=== PATIENT | male | born 1990 | race Caucasian/White ===

== ENCOUNTER 2016-12-16 22:22 | Emergency (ER) | payer OTHER, MEDICAID ==
[~2016-12-16] VITALS: Ht 182.9 cm; Wt 134.9 kg
[~2016-12-16 22:22] MED LIST: /PANT40TA OR; METO10TA2 OR; PRILOSEC PO; TUMS500C OR
[2016-12-16 22:23] VITALS: BP 156/75
--- NOTE | 2016-12-17 08:18 | REP ---
RIGHT WRIST, FOUR VIEWS: HISTORY: Pain. A small ossified density is present along the base of the 5th metacarpal. This most likely represents ligamentous or tendon calcification and less likely an avulsion fracture fragment. There is no definite fracture or dislocation. The joint spaces are normal in appearance. IMPRESSION: There is no acute fracture or dislocation. Signed by Otoniel Cárdenas MD 12/17/2016 08:19 A
== END 2016-12-16 23:00 | disposition home or self-care (01) ==
LOC: M ED 22:22
DX: S63.501A Unspecified sprain of right wrist, initial encounter (principal); W19.XXXA Unspecified fall, initial encounter; Y92.9 Unspecified place or not applicable; Y93.9 Activity, unspecified; Y99.0 Civilian activity done for income or pay; Z88.0 Allergy status to penicillin; Z91.010 Allergy to peanuts

== ENCOUNTER 2017-01-27 16:02 | Emergency (ER) | payer MEDICAID, OTHER ==
[~2017-01-27] VITALS: Ht 180.3 cm; Wt 118.2 kg
[2017-01-27 16:02] VITALS: BP 136/71
[2017-01-27] MEDS ORDERED: IBUPROFEN 800 MG TAB PO ONE (17:00)
[2017-01-27] MEDS ORDERED: IBUP80TA PO (17:06)
[2017-01-30] MEDS ORDERED: APAP500T10 PO (19:29)
[2017-01-30] MEDS ORDERED: VENTAER IN (19:31)
== END 2017-01-27 17:14 | disposition home or self-care (01) ==
LOC: M ED 16:02
DX: M76.62 Achilles tendinitis, left leg (principal)

== ENCOUNTER 2017-01-30 19:12 | Emergency (ER) | payer OTHER, MEDICAID | END 2017-01-30 22:32 | disposition home or self-care (01) | LOC: M ED 19:12 | DX: M76.62 Achilles tendinitis, left leg (principal); S86.812A Strain of other muscle(s) and tendon(s) at lower leg level, left leg, initial encounter; X58.XXXA Exposure to other specified factors, initial encounter; Y92.9 Unspecified place or not applicable; Y93.9 Activity, unspecified; Y99.0 Civilian activity done for income or pay; J45.909 Unspecified asthma, uncomplicated; Z91.010 Allergy to peanuts; Z88.8 Allergy status to other drugs, medicaments and biological substances | CPT/HCPCS: 99283 ==

== ENCOUNTER → 2017-06-26 | Outpatient (CLI) | payer OTHER | LOC: M RAD 12:37 | DX: M54.42 Lumbago with sciatica, left side (principal) | CPT/HCPCS: 72082 ==

== ENCOUNTER 2017-07-23 23:09 | Emergency (ER) | payer OTHER ==
[2017-07-23] MEDS: NS 1,000 ML IV (23:44)
[2017-07-23] MEDS: PANTOPRAZOLE 40MG INJ (PROTONIX) (C9113) IV (23:44)
[2017-07-23] MEDS: KETOROLAC 30 MG/ML VIAL (J1885) IV (23:46)
[2017-07-24 00:05] LABS: PARTIAL THROMBOPLASTIN TIME 28.4 SECONDS (26.8-37.9)
[2017-07-24 00:10] LABS: BASO # 0.1 10^3/uL (0.0-0.2); EOS # 0.3 10^3/uL (0.0-0.50); EOS % 2.4 % (0.0-3.0); HEMATOCRIT 42.4 % (42.0-52.0); HEMOGLOBIN 15.2 g/dl (13.5-17.5); IMMATURE GRANULOCYTE % 1.1 % (0-3.0); LYMPH # 2.2 10^3/uL (1.5-6.5); LYMPH % 19.4 % (24.0-44.0); MEAN CORPUSCULAR HEMOGLOBIN 30.3 pg (27.0-33.0); MEAN CORPUSCULAR HGB CONC 35.8 g/dl (32.0-36.5); MEAN CORPUSCULAR VOLUME 84.6 fl (80.0-96.0); MONO # 0.9 10^3/uL (0.0-0.8); MONO % 7.5 % (0.0-5.0); NEUTROPHILS # 7.8 10^3/uL (1.8-7.7); NEUTROPHILS % 68.6 % (36.0-66.0); PLATELET COUNT, AUTOMATED 305 10^3/uL (150-450); RED BLOOD COUNT 5.01 10^6/uL (4.30-6.10); RED CELL DISTRIBUTION WIDTH 12.6 % (11.5-14.5); WHITE BLOOD COUNT 11.4 10^3/uL (4.0-10.0)
[2017-07-24 00:19] LABS: INR 1.07; PROTHROMBIN TIME 14.1 SECONDS (12.4-14.5)
[2017-07-24 00:54] LABS: ANION GAP 9 MEQ/L (8-16); BLOOD UREA NITROGEN 12 MG/DL (7-18); CALCIUM LEVEL 8.9 MG/DL (8.5-10.1); CARBON DIOXIDE LEVEL 26 MEQ/L (21-32); CHLORIDE LEVEL 105 MEQ/L (98-107); CK-MB VALUE MASS < 1.0 NG/ML (<3.6); CPK CREATINE PHOSPHOKINASE 154 U/L (39-308); CREATININE FOR GFR 1.21 MG/DL (0.70-1.30); ETHYL ALCOHOL (ETHANOL) 0.003 % (0.000-0.010); GLOMERULAR FILTRATION RATE > 60.0 (>60); GLUCOSE, FASTING 95 MG/DL (70-100); MB/CK RELATIVE INDEX 0.64 (< OR =4); POTASSIUM SERUM 3.3 MEQ/L (3.5-5.1); SODIUM LEVEL 140 MEQ/L (136-145); TROPONIN I < 0.02 NG/ML (< 0.10)
[2017-07-24 01:09] LABS: ABG BASE EXCESS -1.6 (-2.0-2.0); ABG HCO3 22.4 MEQ/L (22.0-26.0); ABG O2 SATURATION 94.7 % (95.0-99.0); ABG PARTIAL PRESSURE CO2 36.1 mmHg (35.0-45.0); ABG PARTIAL PRESSURE O2 70.4 mmHg (75.0-100.0); ABG STANDARD HCO3 23.1 MEQ/L (22.0-26.0); ABG TOTAL CO2 23.5 MEQ/L (22.0-29.0); ABG pH (ARTERIAL) 7.411 UNITS (7.350-7.450)
[2017-07-24] MEDS ORDERED: ISOVUE-370 76% 100ML VIAL (Q9967) As Ordered (02:19)
== END 2017-07-24 04:23 | disposition home or self-care (01) ==
LOC: M ED 23:09
DX: R07.89 Other chest pain (principal); R06.02 Shortness of breath; R11.0 Nausea; R00.2 Palpitations; K21.9 Gastro-esophageal reflux disease without esophagitis; J45.909 Unspecified asthma, uncomplicated; Z91.010 Allergy to peanuts; Z88.8 Allergy status to other drugs, medicaments and biological substances
CPT/HCPCS: C9113

== ENCOUNTER 2017-12-12 10:41 | Emergency (ER) | payer SELFPAY, OTHER | END 2017-12-12 12:56 | disposition home or self-care (01) | LOC: M ED 10:41 | DX: M10.9 Gout, unspecified (principal); Z88.1 Allergy status to other antibiotic agents; Z91.010 Allergy to peanuts | CPT/HCPCS: 99283 ==

== ENCOUNTER 2017-12-27 02:38 | Emergency (ER) | payer SELFPAY, OTHER ==
[2017-12-27] MEDS: KETOROLAC 60 MG/2 ML VIAL (J1885) IM (07:13)
[2017-12-27] MEDS: COLCHICINE 0.6 MG TAB PO ×2 (07:13)
== END 2017-12-27 07:47 | disposition home or self-care (01) ==
LOC: M ED 02:38
DX: M10.071 Idiopathic gout, right ankle and foot (principal); S93.524A Sprain of metatarsophalangeal joint of right lesser toe(s), initial encounter; W22.8XXA Striking against or struck by other objects, initial encounter; Y92.012 Bathroom of single-family (private) house as the place of occurrence of the external cause; J45.909 Unspecified asthma, uncomplicated; Z88.8 Allergy status to other drugs, medicaments and biological substances; Z91.010 Allergy to peanuts
CPT/HCPCS: J1885

== ENCOUNTER 2018-02-12 06:49 | Emergency (ER) | payer SELFPAY ==
[~2018-02-12] VITALS: Ht 182.9 cm; Wt 140.9 kg
[~2018-02-12 06:49] MED LIST changes: +APAP500T10 PO; +IBUP80TA PO; +INDO50CA PO; +INDO75CA PO; +NORCOTAB PO; +VENTAER IN
[2018-02-12] MEDS ORDERED: KETOROLAC 60 MG/2 ML VIAL (J1885) IM ONE (07:15)
--- NOTE | 2018-02-12 08:06 | REP ---
Chest x-ray: Two views. History: Trauma, left lower rib pain . Comparison study: Comparison radiographs October 23, 2013 . Findings: The lungs are well inflated and free of infiltrate. The pleural angles are sharp. The heart size is normal. Pulmonary vasculature is not increased. No significant bony abnormality is seen. Impression: Negative chest x-ray. Electronically Signed by Benigno Wynne MD 02/12/2018 07:58 A
[2018-02-12] MEDS ORDERED: PERC5TAB12 PO ×2 (08:14→08:19)
[2018-02-12 09:11] VITALS: BP 126/80
== END 2018-02-12 09:13 | disposition home or self-care (01) ==
LOC: M ED 06:49
DX: S29.9XXA Unspecified injury of thorax, initial encounter (principal); W10.8XXA Fall (on) (from) other stairs and steps, initial encounter; Y92.89 Other specified places as the place of occurrence of the external cause; J45.909 Unspecified asthma, uncomplicated; Z88.8 Allergy status to other drugs, medicaments and biological substances; Z91.010 Allergy to peanuts
CPT/HCPCS: 71046; 96372; 99283; J1885

== ENCOUNTER 2018-03-30 16:41 | Emergency (ER) | payer SELFPAY ==
[~2018-03-30] VITALS: Ht 180.3 cm; Wt 127.3 kg
[~2018-03-30 16:41] MED LIST changes: +PERC5TAB12 PO
[2018-03-30] MEDS ORDERED: IBUP-1114 PO (16:45)
[2018-03-30 17:18] VITALS: BP 145/69
[2018-03-30] MEDS ORDERED: BACT800T5 PO (17:18)
[2018-03-31] MEDS ORDERED: NORCOTAB PO (22:30)
[2018-03-31] MEDS ORDERED: FLAG500T PO (22:30)
[2018-04-08] MEDS ORDERED: CLIN150C14 PO (01:12)
== END 2018-03-30 17:31 | disposition home or self-care (01) ==
LOC: M ED 16:41
DX: L05.01 Pilonidal cyst with abscess (principal); J45.909 Unspecified asthma, uncomplicated; Z79.899 Other long term (current) drug therapy; Z88.1 Allergy status to other antibiotic agents; Z91.010 Allergy to peanuts

== ENCOUNTER 2018-03-31 18:53 | Emergency (ER) | payer SELFPAY ==
[~2018-03-31] VITALS: Ht 180.3 cm; Wt 127.3 kg
[~2018-03-31 18:53] MED LIST changes: +BACT800T5 PO; +IBUP-1114 PO
[2018-03-31] MEDS ORDERED: KETOROLAC 30 MG/ML VIAL (J1885) IV ONE (19:30)
[2018-03-31] MEDS ORDERED: cefTRIAXone SOD 1 GM in D5W MINI-BAG PLUS 50 ML IV ONE (19:30)
[2018-03-31 20:10] LABS: BASO # 0.1 10^3/uL (0.0-0.2); BASO % 0.6 % (0.0-1.0); EOS # 0.2 10^3/uL (0.0-0.50); EOS % 2.1 % (0.0-3.0); HEMATOCRIT 41.7 % (42.0-52.0); HEMOGLOBIN 14.5 g/dl (13.5-17.5); LYMPH # 1.7 10^3/uL (1.5-6.5); LYMPH % 15.7 % (24.0-44.0); MEAN CORPUSCULAR HEMOGLOBIN 29.7 pg (27.0-33.0); MEAN CORPUSCULAR HGB CONC 34.8 g/dl (32.0-36.5); MEAN CORPUSCULAR VOLUME 85.5 fl (80.0-96.0); MONO # 0.9 10^3/uL (0.0-0.8); MONO % 8.2 % (0.0-5.0); NEUTROPHILS # 7.8 10^3/uL (1.8-7.7); NEUTROPHILS % 72.9 % (36.0-66.0); PLATELET COUNT, AUTOMATED 289 10^3/uL (150-450); RED BLOOD COUNT 4.88 10^6/uL (4.30-6.10); WHITE BLOOD COUNT 10.7 10^3/uL (4.0-10.0)
[2018-03-31 20:32] LABS: C REACTIVE PROTEIN QUANTITATIV 5.21 MG/DL (0.00-0.30)
[2018-03-31 20:47] LABS: ERYTHROCYTE SEDIMENTATION RATE 15 mm/hr (0-15)
[2018-03-31 21:03] LABS: BLOOD UREA NITROGEN 6 MG/DL (7-18); CALCIUM LEVEL 8.4 MG/DL (8.5-10.1); CARBON DIOXIDE LEVEL 24 MEQ/L (21-32); CHLORIDE LEVEL 106 MEQ/L (98-107); CREATININE FOR GFR 1.12 MG/DL (0.70-1.30); GLOMERULAR FILTRATION RATE > 60.0 (>60); GLUCOSE, FASTING 89 MG/DL (70-100); SODIUM LEVEL 138 MEQ/L (136-145)
[2018-03-31] MEDS ORDERED: ISOVUE-370 76% 100ML VIAL (Q9967) As Ordered ONE (21:14)
--- NOTE | 2018-03-31 22:05 | REPVR ---
EXAM: CT Pelvis With Contrast EXAM DATE/TIME: 03/31/2018 9:09 PM CLINICAL HISTORY: 27 years old, male; Pain; Other: Pilonidal; Additional info: Pilonidal abscess, tract? TECHNIQUE: Axial computed tomography images of the pelvis with intravenous contrast. All CT scans at this facility use at least one of these dose optimization techniques: automated exposure control; mA and/or kV adjustment per patient size (includes targeted exams where dose is matched to clinical indication); or iterative reconstruction. Coronal and sagittal reformatted images were created and reviewed. CONTRAST: Contrast Material: 100 ml of ISOVUE 370; Contrast Route: IV COMPARISON: CT ABD PELVIS WITH CONTRAST 03/03/2013 7:56 AM FINDINGS: Stomach and bowel: Visualized small bowel and colon are unremarkable. Appendix: A normal appendix is seen. Bladder: Normal. No mass. Reproductive: Resolution of left hydrocele since the prior study. Intraperitoneal space: Unremarkable. No free air. No significant fluid collection. Lymph nodes: Unremarkable. No enlarged lymph nodes. Bones/joints: Unremarkable. No acute fracture. No dislocation. Soft tissues: Subcutaneous induration posterior to the sacrum at about the cephalad aspect of the buttocks crease. At the deep aspect of the crease superiorly, there is a small rounded confluence measuring approximately 1.5 x 1.6 x 1.4 cm and may reflect a small pilonidal cyst. There is skin thickening of the crease and adjacent medial buttocks. No soft tissue gas is noted. IMPRESSION: 1. New subcutaneous induration and skin thickening dorsal to the sacrum involving the cephalad aspect of the interbuttocks crease since 03/03/2013. Just below the level of the sciatic notches, there is a rounded focal confluence at the deep aspect of the crease measuring approximately 14 x 15 x 16 mm and may reflect focal phlegmon, early abscess or possible pilonidal cyst. No soft tissue gas is noted. 2. Otherwise negative CT pelvis. There is resolution of left hydrocele since the prior study. Electronically signed by: Kamar Bañuelos On 03/31/2018 22:05:15 PM
[2018-03-31] MEDS ORDERED: NORCOTAB PO (22:30)
[2018-03-31] MEDS ORDERED: FLAG500T PO (22:30)
[2018-03-31 22:38] VITALS: BP 129/78
--- NOTE | 2018-04-02 13:06 | ED PDOC ---
Post-Departure Follow-Up dr lerner faxed formal report of ct pelvis for fu Mekhi Pritchard MD Apr 02, 2018 13:06
[2018-04-08] MEDS ORDERED: CLIN150C14 PO (01:12)
== END 2018-03-31 22:44 | disposition home or self-care (01) ==
LOC: M ED 18:53
DX: L05.91 Pilonidal cyst without abscess (principal); J45.909 Unspecified asthma, uncomplicated; Z88.8 Allergy status to other drugs, medicaments and biological substances; Z91.010 Allergy to peanuts
CPT/HCPCS: 72193; 80048; 85025; 85652; 86140; 96374; 99283; J0696; J1885; Q9967

== ENCOUNTER 2018-04-03 15:22 | Inpatient (IN) | payer SELFPAY ==
[~2018-04-03] VITALS: Ht 180.3 cm; Wt 140.8 kg
[~2018-04-03 15:22] MED LIST changes: +FLAG500T PO
[2018-04-03] MEDS ORDERED: NS 1,000 ML IV ONE (17:30)
[2018-04-03] MEDS ORDERED: KETOROLAC 30 MG/ML VIAL (J1885) IV ONE (17:30)
[2018-04-03] MEDS ORDERED: ONDANSETRON 4MG/2ML VIAL (J2405) IV ONE (17:30)
[2018-04-03] MEDS ORDERED: GI COCKTAIL 50ML BTL(HYOSCYAMINE/MAALOX/LIDOCAINE VISCOUS)(1:3:1) PO ONE (19:30)
[2018-04-03 19:51] LABS: BASO # 0.1 10^3/uL (0.0-0.2); BASO % 0.4 % (0.0-1.0); EOS # 0.1 10^3/uL (0.0-0.50); EOS % 0.8 % (0.0-3.0); HEMATOCRIT 38.9 % (42.0-52.0); HEMOGLOBIN 13.8 g/dl (13.5-17.5); LYMPH % 7.8 % (24.0-44.0); MEAN CORPUSCULAR HEMOGLOBIN 30.1 pg (27.0-33.0); MEAN CORPUSCULAR HGB CONC 35.5 g/dl (32.0-36.5); MEAN CORPUSCULAR VOLUME 84.9 fl (80.0-96.0); MONO # 1.1 10^3/uL (0.0-0.8); MONO % 9.4 % (0.0-5.0); NEUTROPHILS # 9.9 10^3/uL (1.8-7.7); NEUTROPHILS % 80.9 % (36.0-66.0); PLATELET COUNT, AUTOMATED 315 10^3/uL (150-450); RED BLOOD COUNT 4.58 10^6/uL (4.30-6.10); WHITE BLOOD COUNT 12.2 10^3/uL (4.0-10.0)
[2018-04-03 20:04] LABS: INR 1.28; PROTHROMBIN TIME 16.2 SECONDS (12.1-14.4)
[2018-04-03 20:23] LABS: ALBUMIN 3.8 GM/DL (3.2-5.2); ALT/SGPT 22 U/L (12-78); BILIRUBIN,DIRECT 0.3 MG/DL (0.0-0.2); BILIRUBIN,TOTAL 0.9 MG/DL (0.2-1.0); BLOOD UREA NITROGEN 7 MG/DL (7-18); CALCIUM LEVEL 8.4 MG/DL (8.5-10.1); CARBON DIOXIDE LEVEL 24 MEQ/L (21-32); CHLORIDE LEVEL 101 MEQ/L (98-107); CREATININE FOR GFR 1.11 MG/DL (0.70-1.30); GLOMERULAR FILTRATION RATE > 60.0 (>60); GLUCOSE, FASTING 94 MG/DL (70-100); SODIUM LEVEL 134 MEQ/L (136-145); TOTAL PROTEIN 7.7 GM/DL (6.4-8.2)
[2018-04-03] MEDS ORDERED: ISOVUE-370 76% 100ML VIAL (Q9967) As Ordered ONE (20:32)
[2018-04-03] MEDS ORDERED: LIDOCAINE 2% MDV 20 ML VIAL SC ONE (22:30)
[2018-04-03] MEDS ORDERED: PIPERACILLIN/TAZOBACTAM SOD 4.5 GM in D5W MINI-BAG PLUS 50 ML IV ONE (23:00)
--- NOTE | 2018-04-04 00:01 | REPVR ---
EXAM: CT Abdomen and Pelvis With Contrast EXAM DATE/TIME: 04/03/2018 5:18 PM CLINICAL HISTORY: 27 years old, male; Pain; Abdominal pain; Localized; Lower; Prior surgery; Surgery date: Post-operative (0-2 days); Surgery type: Pilonidal cyst excision; Additional info: Abd pain/fever/pilonidal abscess TECHNIQUE: Axial computed tomography images of the abdomen and pelvis with intravenous contrast. All CT scans at this facility use at least one of these dose optimization techniques: automated exposure control; mA and/or kV adjustment per patient size (includes targeted exams where dose is matched to clinical indication); or iterative reconstruction. Coronal and sagittal reformatted images were created and reviewed. CONTRAST: Contrast Material: 100 ml of iso; Contrast Route: ac COMPARISON: CT PEL W/IV CONTRAST ONLY 03/31/2018 9:07 PM FINDINGS: Lung bases are clear. No pleural or pericardial effusion. Liver is diffusely decreased in attenuation suggestive of fatty infiltration. No focal hepatic abnormalities. The spleen, pancreas and adrenals are grossly normal. Gallbladder is normally distended with no evidence of calcified gallstones. Kidneys demonstrate symmetric function. No focal parenchymal abnormalities or obstructive uropathy. Abdominal aorta is normal in caliber with no evidence of aneurysmal dilatation. Pelvic organs are grossly normal. No free fluid in the abdomen or pelvis. Moderate stranding in the subcutaneous tissue over the coccyx above the gluteal cleft. Findings may be consistent with recent pilonidal cyst excision. Small hyperdensity along the skin in this region measuring up to 14 x 8 mm may be iatrogenic. No significant fluid collection is identified to suggest abscess. IMPRESSION: Stranding in the subcutaneous tissue over the coccyx above the gluteal cleft likely consistent with recent pilonidal cyst excision. No definite evidence of abscess. No acute intra-abdominal or pelvic process. Additional nonemergent findings as described above. Electronically signed by: Stanislaw Ozuna On 04/04/2018 00:01:23 AM
[2018-04-04] MEDS ORDERED: VENTAER INH (00:15)
[2018-04-04] MEDS ORDERED: OMEP20CA3 PO (00:15)
[2018-04-04] MEDS ORDERED: FLAG500T PO (00:15)
[2018-04-04] MEDS ORDERED: NORC1TAB4 PO (00:15)
[2018-04-04] MEDS ORDERED: BACT800T5 PO (00:15)
[2018-04-04] MEDS ORDERED: ACETAMINOPHEN TAB 650MG DOSE (2X325MG) PO PRN (00:30)
[2018-04-04] MEDS ORDERED: ONDANSETRON 4MG/2ML VIAL (J2405) IV PRN (00:30)
[2018-04-04] MEDS ORDERED: ALBUTEROL SULFATE 2.5 MG/0.5 ML INH NEB SOLN NEB PRN (00:45)
[2018-04-04] MEDS ORDERED: VANCOMYCIN HCL 1,000 MG, VIAL MATE ADAPTER 1 EACH in D5W 250 ML IV ONE ×2 (01:30→23:45)
[2018-04-04] MEDS ORDERED: metroNIDAZOLE 500 MG in APPROPRIATE DILUENT 1 EA IV SCH (02:00)
[2018-04-04 02:34] VITALS: BP 139/86
[2018-04-04] MEDS: CALCIUM CARBONATE 500 MG CHEW U/D PO PRN (03:19)
[2018-04-04] MEDS: NORCO, ANEXSIA 5/325MG TABLET (HYDROcodone/ACETAMINOPHEN) PO PRN ×2 (03:19→13:07)
--- NOTE | 2018-04-04 03:34 | PHACANCOPD ---
PHARMACY VANCOMYCIN DOSING Pt Demographics Demographics Patient Age:27 , Weight:127.270 , Gender: male Adjusted Body Weight Date: 04/04/18, Adjusted Body Weight: Kg Events Past 24 Hours Events Past 24 Hours: NO: Dialysis, Diuretic Therapy, Change in CrCl, Fever, Elevation in WBC, Pending Diagnostics, Pending Procedures, Other Vancomycin Vancomycin Target Ranges: 15-20 mcg/ml Vancomycin Load Y/N: Yes Load Dose Date Time Vancomycin Load Dose: 2000MG Date: 04-04 Time: 0600 Vancomycin Dose Date: 04/04/18. Current Vancomycin Dose: [1000mg q6h] Intermittent Dosing?: No Labs Labs Item Value Date Time White Blood Count 12.2 10^3/uL H 04/03/181933 Glomerular Filtration Rate > 60.0 04/03/181933 Creatinine 1.11 MG/DL 04/03/181933 Blood Urea Nitrogen 7 MG/DL 04/03/181933 Vital Signs Label Value Date Time Patient Temperature 100.5 degrees F 04/04/18 0129 Temperature Source Oral 04/04/18 0129 Micro Microbiology 04/03/18 Blood Culture, Received Pending 04/03/18 Blood Culture, Received Pending 04/03/18 Urine Culture, Received Pending 04/03/18 Gram Stain, Received Pending 04/03/18 Wound Culture, Received Pending 04/03/18 Gram Stain, Received Pending 04/03/18 Wound Culture, Received Pending Creatinine Clearance Date:04/04/18. Creatinine Clearance: [>100]. Pending Labs Trough 04-04 @2300 Assessment and Plan Maintaining Current Dose?: Yes Reason for dose change: No Dose Change Pharmacist Note Pharmacist Note Date: 04/04/18. Pharmacist note:Will monitor and make adjustments as needed. LUISA FREITAS PHARMACY Apr 04, 2018 03:34
[2018-04-04] MEDS: metroNIDAZOLE 500 MG in APPROPRIATE DILUENT 1 EA IV SCH ×3 (05:11→20:58)
[2018-04-04 06:00] VITALS: BP 112/55
[2018-04-04] MEDS: VANCOMYCIN HCL 1,000 MG, VIAL MATE ADAPTER 1 EACH in D5W 250 ML IV SCH ×3 (06:36→17:05)
--- NOTE | 2018-04-04 06:39 | HPE ---
DATE OF ADMISSION: 04/04/2018 CHIEF COMPLAINT: Pain and swelling in the buttocks area. HISTORY OF PRESENT ILLNESS: The patient is a 27-year-old male with significant history of acid reflux and asthma. He presents to the emergency room with swelling, pain and induration over the last seven days progressively worsening. The patient presented to the emergency room on 03/30/2018. He noticed symptoms on 03/28/2018 at which point in time he was given Bactrim. He subsequently again presented on 04/01/2018, when he was given Flagyl. He has induration, swelling, redness, pain and erythema in the cleft of the buttocks area in the coccyx. He returns today. He had drainage of what appears to be a pilonidal infected cyst/abscess with a superimposed cellulitis. He also had complaints of nausea, vomiting, subjective fevers and chills at home. He denies any abdominal pain, constipation, diarrhea, or urinary symptoms, cough, chest pain, or shortness of breath. PAST MEDICAL HISTORY: See history of present illness (HPI). PAST SURGICAL HISTORY: He has had left knee arthroscopy, hernia repair. He has had surgery for pyloric stenosis. ALLERGIES: - CLAVULANIC ACID - PEANUTS FAMILY HISTORY: Diabetes and cancers. REVIEW OF SYSTEMS: A 12 point review of systems was completed, all of which were negative except those listed in the HPI. HOME MEDICATIONS: - Bactrim - Flagyl - omeprazole - albuterol as needed SOCIAL HISTORY: He denies tobacco, alcohol or illicit drug use. FAMILY HISTORY: Noncontributory. VITAL SIGNS ON ADMISSION: Temperature 97, pulse 122, respirations 20, blood pressure 163/88, satting at 96% on room air. PHYSICAL EXAMINATION: General: He is well nourished in no apparent distress. Head: Normocephalic, atraumatic. Eyes: Extraocular movements are intact. Pupils equal round and reactive to light. Neck: Supple. No jugular venous pulse (JVP). Lungs are clear to auscultation bilaterally. No crackles, wheezes, rales or rhonchi. Cardiovascular: Regular rate and rhythm. Normal S1, S2. No murmurs, gallops or rub. Abdomen: Soft. Nontender. Nondistended. Positive bowel sounds. No rebound or guarding. Extremities: No pitting edema or calf tenderness. Skin: There is an area of induration and erythema in the coccyx area, it is status post irrigation and debridement (I and D) with packing in the right buttock cleft. Also a small incision made on the left. LABS AND IMAGING: Completed in the emergency room, white count 12, hemoglobin/hematocrit (H/H) 13/38, platelet count 315. Coags: INR 1.28, PTT 37. Lactate within normal limits. BUN and creatinine 7 over 1.11. Urinalysis (UA) is negative. CT of the abdomen and pelvis shows stranding in the subcutaneous tissue of the coccyx above the gluteal cleft likely consistent with recent pilonidal cyst excision. No definitive abscess. ASSESSMENT AND PLAN: Infected pilonidal cyst/abscess with superimposed cellulitis status post irrigation and debridement. Wound culture, blood cultures sent in the emergency room. Will place the patient on vancomycin and Flagyl. Can change antibiotics based on I and D and sensitivities. Tylenol as needed pain. For asthma, continue albuterol as needed. For gastroesophageal reflux disease (GERD), continue omeprazole. Supportive deep vein thrombosis (DVT) prophylaxis. Heparin subcutaneous. Gastrointestinal (GI) prophylaxis not indicated. DIET: Regular.
[2018-04-04] MEDS: OMEPRAZOLE 20 MG CAP PO SCH (08:36)
[2018-04-04] MEDS: ENOXAPARIN 40 MG/0.4 ML SYRINGE (J1650) SC SCH (08:36)
[2018-04-04 14:00] VITALS: BP 133/62
[2018-04-04 20:00] VITALS: BP 145/84
[2018-04-04 21:30] VITALS: BP 164/74
--- NOTE | 2018-04-04 23:54 | PHACANCOPD ---
PHARMACY VANCOMYCIN DOSING Pt Demographics Demographics Patient Age:27 , Weight:140.800 , Gender: male Adjusted Body Weight Vancomycin Vancomycin Target Ranges: 15-20 mcg/ml Vancomycin Load Y/N: Yes Load Dose Date Time Vancomycin ReLoad Dose: 1500MG Date: 04/05/18 Time: 00:00 Vancomycin Dose Date: 04/05/18. Current Vancomycin Dose: [1000mg IV q6h start @ 04:00] Intermittent Dosing?: No Labs Labs Laboratory Tests Test 04/04/18 23:10 Vancomycin Level Trough 11.3 UG/ML (10.0-20.0) Laboratory Tests 04/03/18 19:34 Red Blood Count 4.58, Mean Corpuscular Volume 84.9, Mean Corpuscular Hemoglobin 30.1, Mean Corpuscular Hemoglobin Concent 35.5, Red Cell Distribution Width 12.2, Neutrophils (%) (Auto) 80.9, Lymphocytes (%) (Auto) 7.8, Monocytes (%) (Auto) 9.4, Eosinophils (%) (Auto) 0.8, Basophils (%) (Auto) 0.4, Neutrophils # (Auto) 9.9, Lymphocytes # (Auto) 1.0, Monocytes # (Auto) 1.1, Eosinophils # (Aut o) 0.1, Basophils # (Auto) 0.1 Micro Microbiology 04/03/18 Blood Culture - Preliminary, Resulted No growth after 24 hours . All specim... 04/03/18 Blood Culture - Preliminary, Resulted No growth after 24 hours . All specim... 04/03/18 Urine Culture, Received Pending 04/03/18 Gram Stain - Final, Resulted 04/03/18 Wound Culture, Resulted Pending 04/03/18 Gram Stain - Final, Resulted 04/03/18 Wound Culture, Resulted Pending Creatinine Clearance Date:04/04/18. Creatinine Clearance: [>100]. Assessment and Plan Maintaining Current Dose?: Yes Reason for dose change: Trough too low Pharmacist Note Pharmacist Note Date: 04/05/18. PharmD NOTE: VANCO TR 11.3 (15-20) mcg/ml. RELOAD WITH VANCO 1.5GMN @ MIDNIGHT THEN CHANGE VANCO TO 1GM IV Q6H starting at 04:00 VANCO TROUGH WHEN AT [facility] MOOSE MENJIVAR PHARMACY Apr 04, 2018 23:54
[2018-04-05] MEDS ORDERED: VANCOMYCIN HCL 500 MG in D5W MINI-BAG PLUS 100 ML IV ONE (01:00)
[2018-04-05] MEDS: NORCO, ANEXSIA 5/325MG TABLET (HYDROcodone/ACETAMINOPHEN) PO PRN ×2 (01:10→08:45)
[2018-04-05] MEDS: CALCIUM CARBONATE 500 MG CHEW U/D PO PRN (01:10)
[2018-04-05] MEDS ORDERED: VANCOMYCIN HCL 1,000 MG, VIAL MATE ADAPTER 1 EACH in D5W 250 ML IV SCH ×2 (04:00→06:00)
[2018-04-05 06:00] VITALS: BP 121/65
[2018-04-05 07:14] LABS: HEMATOCRIT 34.8 % (42.0-52.0); HEMOGLOBIN 12.5 g/dl (13.5-17.5); MEAN CORPUSCULAR HGB CONC 35.9 g/dl (32.0-36.5); MEAN CORPUSCULAR VOLUME 83.5 fl (80.0-96.0); PLATELET COUNT, AUTOMATED 265 10^3/uL (150-450); RED BLOOD COUNT 4.17 10^6/uL (4.30-6.10); WHITE BLOOD COUNT 6.5 10^3/uL (4.0-10.0)
[2018-04-05 07:43] LABS: BLOOD UREA NITROGEN 7 MG/DL (7-18); CARBON DIOXIDE LEVEL 25 MEQ/L (21-32); CHLORIDE LEVEL 106 MEQ/L (98-107); GLOMERULAR FILTRATION RATE > 60.0 (>60); GLUCOSE, FASTING 102 MG/DL (70-100); POTASSIUM SERUM 3.9 MEQ/L (3.5-5.1); SODIUM LEVEL 139 MEQ/L (136-145)
[2018-04-05] MEDS: OMEPRAZOLE 20 MG CAP PO SCH (08:44)
[2018-04-05] MEDS: ENOXAPARIN 40 MG/0.4 ML SYRINGE (J1650) SC SCH (08:48)
[2018-04-05] MEDS ORDERED: BACTRIM 160MG/800MG DS TAB PO SCH (09:00)
[2018-04-05] MEDS ORDERED: INFLUENZA QUADRIVALENT PF VACCINE 0.5ML SYRINGE (90686) IM ONE (09:00)
[2018-04-05] MEDS ORDERED: BACT800T5 PO (10:21)
[2018-04-08] MEDS ORDERED: CLIN150C14 PO (01:12)
--- NOTE | 2018-04-08 01:12 | IPNPDOC ---
Text Note Date of Service The patient was seen on 04/05/18. NOTE SUBJECTIVE: Patient spiked a temperature of 102.8 . This am he does not offer any complaints. Says his pain has almost gone after the incision and drainage. PHYSICAL EXAMINATION: VITALS: As below. General: He is well nourished in no apparent distress. HEENT: Normocephalic, atraumatic, moist mucus membranes anicteric eyes. Neck: Supple. No jugular venous pulse (JVP). Lungs are clear to auscultation bilaterally. No crackles, wheezes, rales or rhonchi. Cardiovascular: Regular rate and rhythm. Normal S1, S2. No murmurs, gallops or rub. Abdomen: Soft. Nontender. Nondistended. Positive bowel sounds. No rebound or guarding. Extremities: No pitting edema or calf tenderness. Skin: There is an area of induration and erythema in the coccyx area, it is status post irrigation and debridement (I and D) with packing in the right buttock cleft. Also a small incision made on the left. Labs and radiology reviewed ASSESSMENT and PLAN: The patient is a 27-year-old male with significant history of morbid obesity, acid reflux with h/o surgery for pyloric stenosis and asthma. He presents to the emergency room with swelling, pain and induration over the buttocks and in between the cleft worsening over the last seven days. The patient presented to the emergency room on 03/30/2018. He noticed symptoms on 03/28/2018 at which point in time he was given Bactrim. He subsequently again presented on 04/01/2018, when he was given Flagyl. He has induration, swelling, redness, pain and erythema in the cleft of the buttocks area in the coccyx. He returns today with an abscess in the buttock cleft on both sides. He had drainage of what appears to be a pilonidal infected cyst/abscess. He also has superimposed cellulitis. He was admitted for Cellulitis of the buttocks and infected pilonidal syst. Cellulitis of the buttocks will continue with vancomycin follow cultures Infected pilonidal cyst with abscess status post I and D. follow surgical recommendations for wound care. Asthma albuterol prn Morbid obesity complicating care. GERD continue omeprazole DVT prophylaxis lovenox VS,Fishbone, I+O VS, Fishbone, I+O Vital Signs Date Time Temp Pulse Resp B/P (MAP) Pulse Ox O2 Delivery O2 Flow Rate FiO2 04/04/18 21:30 100.2 101 18 164/74 (104) 96 04/04/18 01:29 Room Air I&O- Last 24 Hours up to 6 AM 04/05/18 06:00 Intake Total 1420 ml Output Total 800 ml Balance 620 ml MEAGHAN GRIFFITH MD Apr 05, 2018 00:37
--- NOTE | 2018-04-08 01:22 | DS.PDOC ---
Discharge Summary General Date of Admission Apr 04, 2018 at 00:29 Date of Discharge 04/05/18 Attending Physician: MEAGHAN GRIFFITH MD Specialist/Consultants Involve: Tomasz Marina Discharge Summary PROCEDURES PERFORMED DURING STAY: Incision and drainage of pilonidal abscesses in the buttock cleft. DISCHARGE DIAGNOSES: Pilonidal Abscess Buttock cellulitis Asthma Morbid obesity GERD COMPLICATIONS/CHIEF COMPLAINT: Pilonidal Abscess. HISTORY OF PRESENT ILLNESS: See history and physical HOSPITAL COURSE: The patient is a 27-year-old male with significant history of morbid obesity, acid reflux with h/o surgery for pyloric stenosis and asthma. He presents to the emergency room with swelling, pain and induration over the buttocks and in between the cleft worsening over the last seven days. The patient presented to the emergency room on 03/30/2018. He noticed symptoms on 03/28/2018 at which point in time he was given Bactrim. He subsequently again presented on 04/01/2018, when he was given Flagyl. He has induration, swelling, redness, pain and erythema in the cleft of the buttocks area in the coccyx. He returns today with an abscess in the buttock cleft on both sides. He had drainage of what appears to be a pilonidal infected cyst/abscess. He also has superimposed cellulitis. He was admitted for Cellulitis of the buttocks and infected pilonidal syst. Cellulitis of the buttocks received 2 days of vancomycin was discharged with bactrim However final cultures from the pilonidal abscess jackie staph epidermidis which is resistant to Bactrim . So antibiotic was changed to clindamycin. Patient was called and instructed about this change in antibiotics and told pick it up from his pharmacy. Infected pilonidal cyst with abscess status post I and D. Continue with dressing QID as instructed with warm compressess for 10 to 15 mins then dry dressing antibiotic changed from bactrim to clindamycin. Asthma albuterol prn Morbid obesity complicating care. GERD continue omeprazole DISCHARGE MEDICATIONS: Please see below. ALLERGIES: Please see below. PHYSICAL EXAMINATION ON DISCHARGE: VITAL SIGNS: Please see below. GENERAL: He is well nourished in no apparent distress. HEENT: Normocephalic, atraumatic, moist mucus membranes anicteric eyes. Neck: Supple. No jugular venous pulse (JVP). Lungs are clear to auscultation bilaterally. No crackles, wheezes, rales or rhonchi. Cardiovascular: Regular rate and rhythm. Normal S1, S2. No murmurs, gallops or rub. Abdomen: Soft. Nontender. Nondistended. Positive bowel sounds. No rebound or guarding. Extremities: No pitting edema or calf tenderness. Skin: There is an area of induration and erythema in the coccyx area, it is status post irrigation and debridement (I and D) with packing in the right buttock cleft. Also a small incision made on the left. LABORATORY DATA: Please see below. ACTIVITY: [As tolerated]. DIET: Regular DISPOSITION: 01 Home, Self-Care. DISCHARGE INSTRUCTIONS: Follow up with PMD in 2 weeks Follow up With Dr Salas siu DISCHARGE CONDITION: [Stable]. TIME SPENT ON DISCHARGE: Greater than 30 minutes. Vital Signs/I&Os Vital Signs Date Time Temp Pulse Resp B/P (MAP) Pulse Ox O2 Delivery O2 Flow Rate FiO2 04/05/18 09:40 18 04/05/18 06:00 97.9 80 121/65 (83) 96 04/04/18 01:29 Room Air Laboratory Data CBC/BMP Item Value Date Time White Blood Count 6.5 10^3/uL 04/05/18 0658 Red Blood Count 4.17 10^6/uL L 04/05/18 0658 Hemoglobin 12.5 g/dl L 04/05/18 0658 Hematocrit 34.8 % L 04/05/18 0658 Mean Corpuscular Volume 83.5 fl 04/05/18 0658 Mean Corpuscular Hemoglobin 30.0 pg 04/05/18 0658 Mean Corpuscular Hemoglobin Concent 35.9 g/dl 04/05/18 0658 Red Cell Distribution Width 12.3 % 04/05/18 0658 Platelet Count 265 10^3/uL 04/05/18 0658 Sodium Level 139 MEQ/L 04/05/18 0658 Potassium Level 3.9 MEQ/L 04/05/18 0658 Chloride Level 106 MEQ/L 04/05/18 0658 Carbon Dioxide Level 25 MEQ/L 04/05/18 0658 Anion Gap 8 MEQ/L 04/05/18 0658 Blood Urea Nitrogen 7 MG/DL 04/05/18 0658 Creatinine 0.90 MG/DL 04/05/18 0658 Glomerular Filtration Rate > 60.0 04/05/18 0658 Fasting Glucose 102 MG/DL H 04/05/18 0658 Calcium Level 8.0 MG/DL L 04/05/18 0658 Microbiology Microbiology 04/03/18 Blood Culture - Preliminary, Resulted No Growth after 72 hours. All specime... 04/03/18 Blood Culture - Preliminary, Resulted No Growth after 72 hours. All specime... 04/03/18 Urine Culture - Final, Complete 04/03/18 Gram Stain - Final, Complete 04/03/18 Wound Culture - Final, Complete Staphylococcus Epidermidis 04/03/18 Gram Stain - Final, Complete 04/03/18 Wound Culture - Final, Complete Staphylococcus Epidermidis Discharge Medications Scheduled Clindamycin Hcl (Clindamycin HCl) 150 Mg Cap, 300 MG PO QID Omeprazole (Omeprazole) 20 Mg Cap, 20 MG PO DAILY, (Reported) Trimethoprim/Sulfamethoxazole (Bactrim Ds 800-160 mg) 1 Tab Tab, 1 TAB PO BID Scheduled PRN Acetaminophen/Hydrocodone ([place] 5-325 mg) 1 Tab Tab, 1 TAB PO Q6H PRN for PAIN, (Reported) Albuterol Sulfate (Ventolin Hfa) 108 Mcg/Act Aer, 2 PUFFS INH QID PRN for SHORTNESS OF BREATH, (Reported) Allergies Coded Allergies: Peanut (Verified Allergy, Unknown, 04/23/13) Clavulanic Acid (Verified Adverse Reaction, Mild, VOMITING, 04/03/18) MEAGHAN GRIFFITH MD Apr 08, 2018 01:22
== END 2018-04-05 11:45 | disposition home or self-care (01) | DRG 383 ==
LOC: M ED 15:22 → M ED INP 04-04 00:29 → M MS5PR 04-04 02:34 → M MS4PR 04-04 21:30
PROVIDERS: ADMIT Internal Medicine; ATTEND Internal Medicine Nephrology
DX: L05.91 Pilonidal cyst without abscess (principal); E66.01 Morbid (severe) obesity due to excess calories; K21.9 Gastro-esophageal reflux disease without esophagitis; L03.317 Cellulitis of buttock; J45.909 Unspecified asthma, uncomplicated; Z88.8 Allergy status to other drugs, medicaments and biological substances; Z91.010 Allergy to peanuts

== ENCOUNTER 2018-09-03 01:05 | Emergency (ER) | payer SELFPAY ==
[~2018-09-03] VITALS: Ht 180.3 cm; Wt 144.0 kg
[~2018-09-03 01:05] MED LIST changes: -/PANT40TA OR; +CLIN150C14 PO; +HYDR-3715 PO; -INDO50CA PO; +INDO50CA91 PO; +NORC1TAB7 PO; -NORCOTAB PO; +OMEP1CAP73 PO; +PROT1TAB2 OR; +VENTAER INH
[2018-09-03 01:06] VITALS: BP 169/80
[2018-11-14] MEDS ORDERED: OMEP1CAP73 PO (18:30)
== END 2018-09-03 01:38 | disposition left against medical advice (07) ==
LOC: M ED 01:05
DX: Z53.29 Procedure and treatment not carried out because of patient's decision for other reasons (principal)

== ENCOUNTER 2018-10-01 15:00 | Emergency (ER) | payer OTHER, SELFPAY ==
[~2018-10-01] VITALS: Ht 182.9 cm; Wt 141.1 kg
[~2018-10-01 15:00] MED LIST changes: -OMEP1CAP73 PO; +OMEP20CA4 PO
--- NOTE | 2018-10-01 15:49 | REP ---
Left foot four views : There is no fracture or dislocation. Mineralization and joint spaces are normal. There are no calcifications or foreign bodies. Impression: Negative left foot . Electronically Signed by Keith Beverly MD 10/01/2018 03:41 P
[2018-10-01] MEDS ORDERED: IBUPROFEN 600 MG TAB PO ONE (16:45)
[2018-10-01] MEDS ORDERED: IBUP-1022 PO (17:16)
--- NOTE | 2018-10-01 17:44 | REP ---
LEFT ANKLE, FOUR VIEWS: Four views of the left ankle are performed. No fracture or dislocation is seen. There is mild posterior and inferior calcaneal spurring. The ankle mortise is anatomic. Electronically Signed by Keith Dougherty MD 10/02/2018 12:17 A
[2018-10-01 18:06] VITALS: BP 132/89
== END 2018-10-01 18:09 | disposition home or self-care (01) ==
LOC: M ED 15:00
DX: S93.401A Sprain of unspecified ligament of right ankle, initial encounter (principal); V13.4XXA Pedal cycle driver injured in collision with car, pick-up truck or van in traffic accident, initial encounter; Y92.410 Unspecified street and highway as the place of occurrence of the external cause; J45.909 Unspecified asthma, uncomplicated; K21.9 Gastro-esophageal reflux disease without esophagitis; Z88.0 Allergy status to penicillin; Z91.010 Allergy to peanuts

== ENCOUNTER 2018-10-19 01:01 | Emergency (ER) | payer OTHER ==
[~2018-10-19] VITALS: Ht 175.3 cm; Wt 144.2 kg
[~2018-10-19 01:01] MED LIST changes: +IBUP-1022 PO
[2018-10-19 04:47] VITALS: BP 110/65
== END 2018-10-19 04:48 | disposition home or self-care (01) ==
LOC: M ED 01:01
DX: S86.811A Strain of other muscle(s) and tendon(s) at lower leg level, right leg, initial encounter (principal); Z88.1 Allergy status to other antibiotic agents; Z91.010 Allergy to peanuts; Z88.8 Allergy status to other drugs, medicaments and biological substances; Y92.89 Other specified places as the place of occurrence of the external cause; X58.XXXA Exposure to other specified factors, initial encounter; Z79.899 Other long term (current) drug therapy

== ENCOUNTER 2018-11-14 18:18 | Emergency (ER) | payer OTHER, SELFPAY ==
[~2018-11-14] VITALS: Ht 185.4 cm; Wt 140.9 kg
[2018-11-14 18:19] VITALS: BP 133/84
[2018-11-14] MEDS ORDERED: OMEP20CA4 PO (18:30)
== END 2018-11-14 19:14 | disposition home or self-care (01) ==
LOC: M ED 18:18
DX: G89.29 Other chronic pain (principal); M25.561 Pain in right knee; W22.8XXA Striking against or struck by other objects, initial encounter; Y92.099 Unspecified place in other non-institutional residence as the place of occurrence of the external cause; Y93.9 Activity, unspecified; Y99.9 Unspecified external cause status; I10 Essential (primary) hypertension; J45.909 Unspecified asthma, uncomplicated; K21.9 Gastro-esophageal reflux disease without esophagitis; Z79.899 Other long term (current) drug therapy; Z91.010 Allergy to peanuts; Z88.0 Allergy status to penicillin

== ENCOUNTER 2018-11-27 00:06 | Emergency (ER) | payer SELFPAY ==
[~2018-11-27] VITALS: Ht 182.9 cm; Wt 144.2 kg
[2018-11-27] MEDS ORDERED: QC A650T3 PO (00:12)
[2018-11-27] MEDS ORDERED: ACETAMINOPHEN TAB 650MG DOSE (2X325MG) PO ONE (01:00)
[2018-11-27 01:53] LABS: INFLUENZA A AMPLIFICATION NEGATIVE (NEGATIVE); INFLUENZA B AMPLIFICATION NEGATIVE (NEGATIVE)
[2018-11-27 01:55] VITALS: BP 128/74
[2018-11-27] MEDS ORDERED: AZIT-12 PO (01:56)
[2018-11-27] MEDS ORDERED: AZITHROMYCIN 250 MG TAB PO ONE (02:00)
--- NOTE | 2018-11-27 03:19 | REP ---
Clinical: Cough. Technique: PA and lateral. Comparison: 02/12/2018. Findings: Left lower lobe/retrocardiac infiltrate requires followup to resolution. Remainder of lung locke clear. No effusion. No pneumothorax. Cardiac silhouette normal. Impression: Left lower lobe/retrocardiac infiltrate. Follow-up to resolution. Electronically Signed by Jarrell Miller MD 11/27/2018 03:10 A
--- NOTE | 2018-11-27 13:39 | ED PDOC ---
Post-Departure Follow-Up certified letter sent to pt re formal read of cxr. see report. needs fu. [facility] refer to [facility] and then fax there if no pcp Mekhi Pritchard MD Nov 27, 2018 13:39
== END 2018-11-27 02:18 | disposition home or self-care (01) ==
LOC: M ED 00:06
DX: J18.1 Lobar pneumonia, unspecified organism (principal); Z79.899 Other long term (current) drug therapy; Z91.010 Allergy to peanuts; Z88.0 Allergy status to penicillin

== ENCOUNTER 2019-03-17 22:23 | Emergency (ER) | payer OTHER, SELFPAY ==
[~2019-03-17] VITALS: Ht 185.4 cm; Wt 139.2 kg
[~2019-03-17 22:23] MED LIST changes: +AZIT-12 PO; +OMEP1CAP73 PO; -OMEP20CA4 PO; +QC A650T3 PO
[2019-03-17 23:50] VITALS: BP 121/65
== END 2019-03-17 23:52 | disposition home or self-care (01) ==
LOC: M ED 22:23
DX: H65.193 Other acute nonsuppurative otitis media, bilateral (principal); J45.909 Unspecified asthma, uncomplicated; K31.1 Adult hypertrophic pyloric stenosis; Z88.1 Allergy status to other antibiotic agents; Z91.010 Allergy to peanuts

== ENCOUNTER 2019-04-04 02:15 | Emergency (ER) | payer SELFPAY ==
[~2019-04-04] VITALS: Ht 185.4 cm; Wt 139.4 kg
[2019-04-04] MEDS ORDERED: TOBRADEX OPHTH SUSP 2.5 ML OS ONE (02:45)
[2019-04-04 02:47] VITALS: BP 151/81
== END 2019-04-04 02:55 | disposition home or self-care (01) ==
LOC: M ED 02:15
DX: H10.212 Acute toxic conjunctivitis, left eye (principal); T65.891A Toxic effect of other specified substances, accidental (unintentional), initial encounter; K21.9 Gastro-esophageal reflux disease without esophagitis; M10.9 Gout, unspecified; Z88.0 Allergy status to penicillin; Z88.1 Allergy status to other antibiotic agents; Z91.010 Allergy to peanuts

== ENCOUNTER 2019-04-10 20:36 | Emergency (ER) | payer SELFPAY ==
[~2019-04-10] VITALS: Ht 185.4 cm; Wt 141.1 kg
[2019-04-10 20:36] VITALS: BP 142/91
[2019-04-11] MEDS ORDERED: PSEU120T19 PO (01:23)
[2019-04-11] MEDS ORDERED: POLYSOL OP (01:23)
[2019-04-11] MEDS ORDERED: HM S0.65 NARES (01:23)
[2019-04-11] MEDS ORDERED: FLON1SPR NARES (01:23)
[2019-04-11] MEDS ORDERED: POLYTRIM OPTH DROPS 10ML OU SCH (06:00)
== END 2019-04-11 01:48 | disposition home or self-care (01) ==
LOC: M ED 20:36
DX: H10.021 Other mucopurulent conjunctivitis, right eye (principal); H92.02 Otalgia, left ear; H65.01 Acute serous otitis media, right ear; R09.81 Nasal congestion; J02.9 Acute pharyngitis, unspecified; I10 Essential (primary) hypertension; J45.909 Unspecified asthma, uncomplicated; Z88.0 Allergy status to penicillin; Z88.1 Allergy status to other antibiotic agents; Z91.010 Allergy to peanuts; Z79.899 Other long term (current) drug therapy

== ENCOUNTER 2019-10-10 14:55 | Emergency (ER) | payer OTHER, SELFPAY ==
[~2019-10-10] VITALS: Ht 188 cm; Wt 143.2 kg
[~2019-10-10 14:55] MED LIST changes: +FLON1SPR NARES; +HM S0.65 NARES; +POLYSOL OP; +PSEU120T19 PO
--- NOTE | 2019-10-10 16:05 | REPVR ---
PROCEDURE INFORMATION: Exam: XR Left Foot Complete Exam date and time: 10/10/2019 3:15 PM Age: 29 years old Clinical indication: Pain; Foot; Left; Additional info: Left foot swelling TECHNIQUE: Imaging protocol: XR Left foot. Views: 3 or more views. COMPARISON: CR Foot, complete 10/01/2018 3:22 PM FINDINGS: Bones/joints: No acute fracture or dislocation. Joint spaces are unremarkable. Soft tissues: Generalized soft tissue swelling of the foot and ankle. No radiopaque foreign body. IMPRESSION: Generalized soft tissue swelling of the foot and ankle. Electronically signed by: Ambrose Marrero On 10/10/2019 16:05:14 PM
[2019-10-10 16:06] LABS: BASO # 0.1 10^3/uL (0.0-0.2); BASO % 0.8 % (0.0-1.0); EOS # 0.2 10^3/uL (0.0-0.5); HEMOGLOBIN 13.6 g/dl (13.5-17.5); LYMPH # 1.9 10^3/uL (1.5-5.0); LYMPH % 22.4 % (24.0-44.0); MEAN CORPUSCULAR HGB CONC 34.9 g/dl (32.0-36.5); MEAN CORPUSCULAR VOLUME 88.8 fl (80.0-96.0); MONO # 0.7 10^3/uL (0.0-0.8); MONO % 8.1 % (0.0-5.0); NEUTROPHILS # 5.6 10^3/uL (1.5-8.5); NEUTROPHILS % 65.9 % (36.0-66.0); PLATELET COUNT, AUTOMATED 280 10^3/uL (150-450); RED BLOOD COUNT 4.39 10^6/uL (4.30-6.10); WHITE BLOOD COUNT 8.4 10^3/uL (4.0-10.0)
[2019-10-10 16:07] LABS: BLOOD UREA NITROGEN 14 MG/DL (7-18); CARBON DIOXIDE LEVEL 30 MEQ/L (21-32); CHLORIDE LEVEL 105 MEQ/L (98-107); CREATININE FOR GFR 0.94 MG/DL (0.70-1.30); GLOMERULAR FILTRATION RATE > 60.0 (>60); GLUCOSE, FASTING 91 MG/DL (70-100); POTASSIUM SERUM 4.5 MEQ/L (3.5-5.1); SODIUM LEVEL 139 MEQ/L (136-145); URIC ACID 8.9 MG/DL (3.5-7.2)
[2019-10-10 16:18] VITALS: BP 121/75
[2019-10-10] MEDS ORDERED: INDO50CA91 PO (16:20)
== END 2019-10-10 16:29 | disposition home or self-care (01) ==
LOC: M ED 14:55
DX: M10.072 Idiopathic gout, left ankle and foot (principal); I10 Essential (primary) hypertension; K21.9 Gastro-esophageal reflux disease without esophagitis; J45.909 Unspecified asthma, uncomplicated; K31.1 Adult hypertrophic pyloric stenosis; Z88.1 Allergy status to other antibiotic agents; Z91.010 Allergy to peanuts; Z88.8 Allergy status to other drugs, medicaments and biological substances; Z79.899 Other long term (current) drug therapy

== ENCOUNTER 2020-01-08 22:12 | Emergency (ER) | payer OTHER ==
[~2020-01-08] VITALS: Ht 177.8 cm; Wt 152.9 kg
[2020-01-08 23:53] VITALS: BP 158/78
== END 2020-01-09 00:04 | disposition home or self-care (01) ==
LOC: M ED 22:12
DX: H11.422 Conjunctival edema, left eye (principal); Z87.891 Personal history of nicotine dependence; Z88.1 Allergy status to other antibiotic agents; Z88.8 Allergy status to other drugs, medicaments and biological substances; Z91.010 Allergy to peanuts; Z79.899 Other long term (current) drug therapy

== ENCOUNTER 2021-09-25 22:15 | Emergency (ER) | payer OTHER ==
[~2021-09-25] VITALS: Ht 185.4 cm; Wt 142.6 kg
[~2021-09-25 22:15] MED LIST changes: -CLIN150C14 PO; +CLIN150C17 PO
[2021-09-26] MEDS ORDERED: INDOMETHACIN 25 MG CAP PO ONE (00:45)
[2021-09-26] MEDS ORDERED: INDO50CA91 PO (00:47)
[2021-09-26 01:16] VITALS: BP 147/66
== END 2021-09-26 01:20 | disposition home or self-care (01) ==
LOC: M ED 22:15
DX: M10.071 Idiopathic gout, right ankle and foot (principal); I10 Essential (primary) hypertension; J45.909 Unspecified asthma, uncomplicated; K21.9 Gastro-esophageal reflux disease without esophagitis; Z88.1 Allergy status to other antibiotic agents; Z88.8 Allergy status to other drugs, medicaments and biological substances; Z91.010 Allergy to peanuts; Z79.899 Other long term (current) drug therapy

== ENCOUNTER 2021-12-11 23:33 | Emergency (ER) | payer OTHER ==
[~2021-12-11] VITALS: Ht 182.9 cm; Wt 127.3 kg
[2021-12-12 01:01] LABS: BASO # 0.1 10^3/uL (0.0-0.2); EOS # 0.3 10^3/uL (0.0-0.5); EOS % 2.6 % (0.0-3.0); HEMATOCRIT 42.2 % (42.0-52.0); HEMOGLOBIN 14.5 g/dl (13.5-17.5); LYMPH # 2.9 10^3/uL (1.5-5.0); LYMPH % 24.8 % (24.0-44.0); MEAN CORPUSCULAR HEMOGLOBIN 30.1 pg (27.0-33.0); MEAN CORPUSCULAR HGB CONC 34.4 g/dl (32.0-36.5); MEAN CORPUSCULAR VOLUME 87.6 fl (80.0-96.0); MONO # 0.9 10^3/uL (0.0-0.8); MONO % 7.8 % (2.0-8.0); NEUTROPHILS # 7.3 10^3/uL (1.5-8.5); PLATELET COUNT, AUTOMATED 298 10^3/uL (150-450); RED BLOOD COUNT 4.82 10^6/uL (4.30-6.10); WHITE BLOOD COUNT 11.6 10^3/uL (4.0-10.0)
[2021-12-12] MEDS ORDERED: COLCHICINE 0.6 MG TABLET PO ONE (01:10)
[2021-12-12] MEDS ORDERED: ONDANSETRON 4MG ORAL DISINTEGRATING TAB PO ONE (01:10)
[2021-12-12 01:40] LABS: ALBUMIN 4.2 GM/DL (3.2-5.2); ALT/SGPT 28 U/L (12-78); BILIRUBIN,TOTAL 0.5 MG/DL (0.2-1.0); BLOOD UREA NITROGEN 14 MG/DL (7-18); CALCIUM LEVEL 9.2 MG/DL (8.5-10.1); CARBON DIOXIDE LEVEL 28 MEQ/L (21-32); CHLORIDE LEVEL 105 MEQ/L (98-107); CREATININE FOR GFR 1.13 MG/DL (0.70-1.30); GLOMERULAR FILTRATION RATE > 60.0 (>60); GLUCOSE, FASTING 89 MG/DL (70-100); LIPASE 140 U/L (73-393); POTASSIUM SERUM 4.1 MEQ/L (3.5-5.1); SODIUM LEVEL 141 MEQ/L (136-145)
[2021-12-12] MEDS ORDERED: KETOROLAC 60MG 2ML VIAL IM ONE (02:00)
[2021-12-12] MEDS ORDERED: LIDOCAINE 5% (LIDODERM) PATCH TD ONE (02:10)
[2021-12-12 02:59] VITALS: BP 114/61
[2021-12-12] MEDS ORDERED: TRAM50TA2 PO (03:06)
[2021-12-12] MEDS ORDERED: ONDA4TAB6 PO (03:07)
[2021-12-12] MEDS ORDERED: INDO50CA91 PO (03:31)
== END 2021-12-12 03:33 | disposition home or self-care (01) ==
LOC: M ED 23:33
DX: R10.9 Unspecified abdominal pain (principal); R11.0 Nausea; M54.50 Low back pain, unspecified; I10 Essential (primary) hypertension; K21.9 Gastro-esophageal reflux disease without esophagitis; Z91.010 Allergy to peanuts; Z88.1 Allergy status to other antibiotic agents; Z79.899 Other long term (current) drug therapy
CPT/HCPCS: 74176; 80053; 81000; 81015; 83690; 85025; 87086; 96372; 99283; J1885

== ENCOUNTER 2022-02-21 20:10 | Emergency (ER) | payer OTHER ==
[~2022-02-21] VITALS: Ht 180.3 cm; Wt 144.8 kg
[~2022-02-21 20:10] MED LIST changes: +ONDA4TAB6 PO; +TRAM50TA2 PO
[2022-02-21 20:11] VITALS: BP 137/94
[2022-02-22] MEDS ORDERED: INDO-16 PO (01:49)
== END 2022-02-22 02:02 | disposition home or self-care (01) ==
LOC: M ED 20:10
DX: S93.401A Sprain of unspecified ligament of right ankle, initial encounter (principal); M10.071 Idiopathic gout, right ankle and foot; W01.0XXA Fall on same level from slipping, tripping and stumbling without subsequent striking against object, initial encounter; I10 Essential (primary) hypertension; K21.9 Gastro-esophageal reflux disease without esophagitis; J45.909 Unspecified asthma, uncomplicated; F10.10 Alcohol abuse, uncomplicated; Z88.1 Allergy status to other antibiotic agents; Z91.010 Allergy to peanuts; Z79.891 Long term (current) use of opiate analgesic; Z79.83 Long term (current) use of bisphosphonates; Z79.899 Other long term (current) drug therapy

== ENCOUNTER 2022-03-21 04:12 | Emergency (ER) | payer OTHER ==
[~2022-03-21] VITALS: Ht 182.9 cm; Wt 144.9 kg
[~2022-03-21 04:12] MED LIST changes: +INDO-16 PO
[2022-03-21] MEDS ORDERED: CEPACOL LOZENGE MT STA (07:37)
[2022-03-21 08:24] LABS: BASO # 0.1 10^3/uL (0.0-0.2); EOS # 0.3 10^3/uL (0.0-0.5); EOS % 3.5 % (0.0-3.0); HEMATOCRIT 39.9 % (42.0-52.0); LYMPH # 2.5 10^3/uL (1.5-5.0); LYMPH % 27.6 % (24.0-44.0); MEAN CORPUSCULAR HEMOGLOBIN 30.4 pg (27.0-33.0); MEAN CORPUSCULAR HGB CONC 35.1 g/dl (32.0-36.5); MEAN CORPUSCULAR VOLUME 86.6 fl (80.0-96.0); MONO # 0.7 10^3/uL (0.0-0.8); MONO % 7.1 % (2.0-8.0); NEUTROPHILS # 5.5 10^3/uL (1.5-8.5); NEUTROPHILS % 60.3 % (36.0-66.0); PLATELET COUNT, AUTOMATED 280 10^3/uL (150-450); RED BLOOD COUNT 4.61 10^6/uL (4.30-6.10); WHITE BLOOD COUNT 9.2 10^3/uL (4.0-10.0)
[2022-03-21 08:37] LABS: BLOOD UREA NITROGEN 12 MG/DL (9-23); CALCIUM LEVEL 8.9 MG/DL (8.5-10.1); CARBON DIOXIDE LEVEL 26 MMOL/L (20-31); CHLORIDE LEVEL 106 MMOL/L (98-107); CREATININE FOR GFR 0.97 MG/DL (0.70-1.30); GLOMERULAR FILTRATION RATE > 60.0 (>60); GLUCOSE, FASTING 123 MG/DL (60-100); POTASSIUM SERUM 3.7 MMOL/L (3.5-5.1); SODIUM LEVEL 139 MMOL/L (136-145)
[2022-03-21] MEDS ORDERED: BENZ1LOZ9 PO (09:06)
[2022-03-21 09:25] LABS: MONO REFLEX EBV COMP NEGATIVE (NEGATIVE)
[2022-03-21 09:36] VITALS: BP 150/95
[2022-03-22 15:08] LABS: EBV VIRAL CAPSID AG IgM <36.0 U/mL (0.0-35.9)
== END 2022-03-21 09:38 | disposition home or self-care (01) ==
LOC: M ED 04:12
DX: J04.0 Acute laryngitis (principal); J06.9 Acute upper respiratory infection, unspecified; B34.8 Other viral infections of unspecified site; J02.9 Acute pharyngitis, unspecified; I10 Essential (primary) hypertension; J45.909 Unspecified asthma, uncomplicated; K21.9 Gastro-esophageal reflux disease without esophagitis; F17.200 Nicotine dependence, unspecified, uncomplicated; F10.10 Alcohol abuse, uncomplicated; Z88.1 Allergy status to other antibiotic agents; Z91.010 Allergy to peanuts; Z79.1 Long term (current) use of non-steroidal anti-inflammatories (NSAID); Z79.899 Other long term (current) drug therapy

== ENCOUNTER → 2022-06-20 | Outpatient (REF) | payer OTHER ==
[~2022-06-20] MED LIST changes: +BENZ1LOZ9 PO
[2022-06-20 18:01] LABS: BASO # 0.1 10^3/uL (0.0-0.2); BASO % 1.1 % (0.0-1.0); EOS # 0.3 10^3/uL (0.0-0.5); EOS % 3.6 % (0.0-3.0); HEMATOCRIT 42.7 % (42.0-52.0); HEMOGLOBIN 14.9 g/dl (13.5-17.5); LYMPH # 2.2 10^3/uL (1.5-5.0); LYMPH % 28.9 % (24.0-44.0); MEAN CORPUSCULAR HEMOGLOBIN 30.5 pg (27.0-33.0); MEAN CORPUSCULAR HGB CONC 34.9 g/dl (32.0-36.5); MEAN CORPUSCULAR VOLUME 87.3 fl (80.0-96.0); MONO # 0.6 10^3/uL (0.0-0.8); MONO % 7.4 % (2.0-8.0); NEUTROPHILS # 4.4 10^3/uL (1.5-8.5); NEUTROPHILS % 58.1 % (36.0-66.0); PLATELET COUNT, AUTOMATED 272 10^3/uL (150-450); RED BLOOD COUNT 4.89 10^6/uL (4.30-6.10); WHITE BLOOD COUNT 7.6 10^3/uL (4.0-10.0)
[2022-06-20 18:33] LABS: URIC ACID 9.7 MG/DL (3.7-9.2)
[2022-06-20 18:36] LABS: ALBUMIN 4.2 G/DL (3.2-5.2); ALKALINE PHOSPHATASE 53 U/L (46-116); ALT/SGPT 47 U/L (7.0-40); AST/SGOT 30 U/L (<34); BILIRUBIN,TOTAL 0.9 MG/DL (0.3-1.2); BLOOD UREA NITROGEN 12 MG/DL (9-23); CALCIUM LEVEL 9.3 MG/DL (8.5-10.1); CARBON DIOXIDE LEVEL 28 MMOL/L (20-31); CHLORIDE LEVEL 104 MMOL/L (98-107); CHOLESTEROL LEVEL 148 MG/DL (<200); CHOLESTEROL RISK RATIO 4.49 (<5); CREATININE FOR GFR 0.91 MG/DL (0.70-1.30); GLOMERULAR FILTRATION RATE > 60.0 (>60); GLUCOSE, FASTING 82 MG/DL (60-100); HDL CHOLESTEROL 32.9 MG/DL (>40); LDL CHOLESTEROL 73.3 MG/DL (<100); NON-HDL-C 115.1 MG/DL; POTASSIUM SERUM 4.3 MMOL/L (3.5-5.1); SODIUM LEVEL 139 MMOL/L (136-145); TOTAL PROTEIN 7.2 G/DL (5.7-8.2); TRIGLYCERIDES LEVEL 209 MG/DL (<150)
[2022-06-20 18:37] LABS: THYROID STIMULATING HORMONE 9.242 uIU/ML (0.55-4.78)
[2022-06-20 18:38] LABS: TOTAL 25(OH) VITAMIN D 10.8 NG/ML (20.0-100.0)
== END ==
LOC: M LAB REF 16:34
PROVIDERS: ATTEND Nurse Practitioner Family
DX: M10.9 Gout, unspecified (principal); Z13.228 Encounter for screening for other metabolic disorders

== ENCOUNTER 2022-07-18 00:33 | Emergency (ER) | payer OTHER ==
[2022-07-18 05:06] LABS: ALBUMIN 4.3 G/DL (3.2-5.2); ALKALINE PHOSPHATASE 56 U/L (46-116); ALT/SGPT 33 U/L (7.0-40); AST/SGOT 15 U/L (<34); BLOOD UREA NITROGEN 12 MG/DL (9-23); CALCIUM LEVEL 8.6 MG/DL (8.5-10.1); CARBON DIOXIDE LEVEL 26 MMOL/L (20-31); CHLORIDE LEVEL 103 MMOL/L (98-107); GLOMERULAR FILTRATION RATE > 60.0 (>60); GLUCOSE, FASTING 113 MG/DL (60-100); HEMATOCRIT 40.7 % (42.0-52.0); HEMOGLOBIN 14.3 g/dl (13.5-17.5); MEAN CORPUSCULAR HEMOGLOBIN 29.9 pg (27.0-33.0); MEAN CORPUSCULAR HGB CONC 35.1 g/dl (32.0-36.5); MEAN CORPUSCULAR VOLUME 85.1 fl (80.0-96.0); PLATELET COUNT, AUTOMATED 266 10^3/uL (150-450); POTASSIUM SERUM 3.7 MMOL/L (3.5-5.1); RED BLOOD COUNT 4.78 10^6/uL (4.30-6.10); SODIUM LEVEL 137 MMOL/L (136-145); TOTAL PROTEIN 7.3 G/DL (5.7-8.2); WHITE BLOOD COUNT 11.1 10^3/uL (4.0-10.0)
[2022-07-18] MEDS ORDERED: CEPHALEXIN 500 MG CAP PO ONE (09:55)
[2022-07-18] MEDS ORDERED: dexAMETHasone 4 MG TAB PO ONE (09:55)
[2022-07-18] MEDS ORDERED: CEPH500C PO (10:05)
[2022-07-18 10:18] VITALS: BP 132/74; TEMP 99.5; O2SAT 97
== END 2022-07-18 10:31 | disposition home or self-care (01) ==
LOC: M ED 00:33
DX: J02.9 Acute pharyngitis, unspecified (principal); Z88.1 Allergy status to other antibiotic agents; Z91.010 Allergy to peanuts; Z20.818 Contact with and (suspected) exposure to other bacterial communicable diseases; Z79.899 Other long term (current) drug therapy

== ENCOUNTER 2022-07-28 02:12 | Emergency (ER) | payer OTHER ==
[~2022-07-28] VITALS: Ht 182.9 cm; Wt 140.7 kg
[~2022-07-28 02:12] MED LIST changes: +CEPH500C PO
[2022-07-28] MEDS ORDERED: KETOROLAC 30 MG/ML 1ML VIAL IV ONE (06:15)
[2022-07-28] MEDS ORDERED: LIDOCAINE 5% (LIDODERM) PATCH TD ONE (06:15)
[2022-07-28 06:55] LABS: BASO # 0.1 10^3/uL (0.0-0.2); EOS # 0.3 10^3/uL (0.0-0.5); EOS % 2.7 % (0.0-3.0); HEMATOCRIT 39.7 % (42.0-52.0); HEMOGLOBIN 13.8 g/dl (13.5-17.5); LYMPH # 3.3 10^3/uL (1.5-5.0); LYMPH % 34.4 % (24.0-44.0); MEAN CORPUSCULAR HEMOGLOBIN 30.4 pg (27.0-33.0); MEAN CORPUSCULAR HGB CONC 34.8 g/dl (32.0-36.5); MEAN CORPUSCULAR VOLUME 87.4 fl (80.0-96.0); MONO # 0.8 10^3/uL (0.0-0.8); MONO % 7.8 % (2.0-8.0); NEUTROPHILS # 5.1 10^3/uL (1.5-8.5); NEUTROPHILS % 53.5 % (36.0-66.0); PLATELET COUNT, AUTOMATED 299 10^3/uL (150-450); RED BLOOD COUNT 4.54 10^6/uL (4.30-6.10); WHITE BLOOD COUNT 9.6 10^3/uL (4.0-10.0)
[2022-07-28] MEDS ORDERED: METH-1165 PO (09:08)
[2022-07-28] MEDS ORDERED: NAPR-837 PO (09:08)
[2022-07-28] MEDS ORDERED: ASPE4PAD TOP (09:08)
[2022-07-28 09:12] VITALS: BP 129/62; TEMP 97.8; O2SAT 98
== END 2022-07-28 09:21 | disposition home or self-care (01) ==
LOC: M ED 02:12
DX: M54.50 Low back pain, unspecified (principal); I10 Essential (primary) hypertension; K21.9 Gastro-esophageal reflux disease without esophagitis; Z88.1 Allergy status to other antibiotic agents; Z91.010 Allergy to peanuts; Z79.83 Long term (current) use of bisphosphonates; Z79.899 Other long term (current) drug therapy
CPT/HCPCS: 74176; 80047; 81001; 85025; 96374; 99284; J1885

== ENCOUNTER 2022-08-11 23:21 | Emergency (ER) | payer OTHER ==
[~2022-08-11] VITALS: Ht 180.3 cm; Wt 141.4 kg
[~2022-08-11 23:21] MED LIST changes: +ASPE4PAD TOP; -HM S0.65 NARES; +METH-1165 PO; +NAPR-837 PO; +SALI0.6531 NARES
[2022-08-12] MEDS ORDERED: OLOPATADINE 0.1% OPHTH SOL 5ML(PATANOL) OU STA (05:27)
[2022-08-12] MEDS ORDERED: OLOP2.5D7 OP (05:51)
[2022-08-12 06:07] VITALS: BP 153/88; TEMP 97.6; O2SAT 98
== END 2022-08-12 06:29 | disposition home or self-care (01) ==
LOC: M ED 23:21
DX: H10.13 Acute atopic conjunctivitis, bilateral (principal); K21.9 Gastro-esophageal reflux disease without esophagitis; F17.200 Nicotine dependence, unspecified, uncomplicated; Z91.010 Allergy to peanuts; Z88.1 Allergy status to other antibiotic agents; Z79.1 Long term (current) use of non-steroidal anti-inflammatories (NSAID); Z79.83 Long term (current) use of bisphosphonates; Z79.899 Other long term (current) drug therapy

== ENCOUNTER → 2022-09-18 | Outpatient (REF) | payer OTHER ==
[~2022-09-18] MED LIST changes: +OLOP2.5D7 OP
[2022-09-18 17:53] LABS: CHOLESTEROL RISK RATIO 4.66 (<5); HDL CHOLESTEROL 31.7 MG/DL (>40); LDL CHOLESTEROL 52.5 MG/DL (<100); NON-HDL-C 116.3 MG/DL
[2022-09-18 17:54] LABS: THYROXINE (T4) 7.6 UG/DL (4.5-10.9)
[2022-09-18 17:55] LABS: THYROID STIMULATING HORMONE 6.518 uIU/ML (0.55-4.78)
[2022-09-18 17:56] LABS: FREE T4 1.01 NG/DL (0.89-1.76)
[2022-09-18 17:57] LABS: URIC ACID 9.6 MG/DL (3.7-9.2)
== END ==
LOC: M LAB REF 16:27
PROVIDERS: ATTEND Nurse Practitioner Family
DX: R79.89 Other specified abnormal findings of blood chemistry (principal)

== ENCOUNTER → 2022-11-16 | Outpatient (REF) | payer OTHER ==
[2022-11-16 13:25] LABS: FREE T4 1.11 NG/DL (0.89-1.76); THYROID STIMULATING HORMONE 7.137 uIU/ML (0.55-4.78)
== END ==
LOC: M LAB REF 11:40
PROVIDERS: ATTEND Nurse Practitioner Family
DX: E03.9 Hypothyroidism, unspecified (principal)

== ENCOUNTER → 2022-12-14 | Outpatient (REF) | payer OTHER ==
[2022-12-14 18:11] LABS: THYROID STIMULATING HORMONE 8.246 uIU/ML (0.55-4.78)
[2022-12-15 22:18] LABS: THYROID PEROXIDASE ANTIBODY > 1300.0 U/ML (<60.0)
== END ==
LOC: M LAB REF 16:29
PROVIDERS: ATTEND Nurse Practitioner Family
DX: R79.89 Other specified abnormal findings of blood chemistry (principal)

== ENCOUNTER → 2022-12-20 | Outpatient (REF) | LOC: M LAB 12:33 | PROVIDERS: ATTEND Nurse Practitioner Adult Health | DX: Z00.00 Encounter for general adult medical examination without abnormal findings (principal) ==

== ENCOUNTER → 2022-12-21 | Outpatient (CLI) | payer OTHER | LOC: M RAD 09:34 | PROVIDERS: ATTEND Nurse Practitioner Family | DX: R79.89 Other specified abnormal findings of blood chemistry (principal) ==

== ENCOUNTER → 2023-01-08 | Outpatient (REF) | LOC: M EMP 09:05 | PROVIDERS: ATTEND Family Medicine | DX: Z11.52 Encounter for screening for COVID-19 (principal) ==

== ENCOUNTER 2023-05-06 06:45 | Emergency (ER) | payer OTHER ==
[~2023-05-06] VITALS: Ht 185.4 cm; Wt 127.3 kg
[2023-05-06 06:45] VITALS: TEMP 98; O2SAT 97
[2023-05-06] MEDS ORDERED: ALLO100T (06:51)
[2023-05-06] MEDS ORDERED: LEVO25TA5 (06:51)
[2023-05-06] MEDS ORDERED: INDO50CA91 PO (07:46)
[2023-05-06] MEDS: INDOMETHACIN 25 MG CAP PO ONE (08:18)
[2023-05-06 08:20] VITALS: BP 143/85
== END 2023-05-06 08:31 | disposition home or self-care (01) ==
LOC: M ED 06:45
DX: M10.072 Idiopathic gout, left ankle and foot (principal); I10 Essential (primary) hypertension; Z87.891 Personal history of nicotine dependence; Z88.0 Allergy status to penicillin; Z88.1 Allergy status to other antibiotic agents; Z91.010 Allergy to peanuts; Z79.83 Long term (current) use of bisphosphonates; Z79.1 Long term (current) use of non-steroidal anti-inflammatories (NSAID); Z79.899 Other long term (current) drug therapy

== ENCOUNTER → 2023-05-09 | Outpatient (REF) | payer OTHER ==
[~2023-05-09] MED LIST changes: +ALLO100T; +LEVO25TA5
[2023-05-09 17:21] LABS: BASO # 0.1 10^3/uL (0.0-0.2); BASO % 1.2 % (0.0-1.0); EOS # 0.3 10^3/uL (0.0-0.5); EOS % 4.2 % (0.0-3.0); HEMATOCRIT 43.7 % (42.0-52.0); HEMOGLOBIN 14.8 g/dl (13.5-17.5); LYMPH # 1.8 10^3/uL (1.5-5.0); LYMPH % 24.8 % (24.0-44.0); MEAN CORPUSCULAR HEMOGLOBIN 30.1 pg (27.0-33.0); MEAN CORPUSCULAR HGB CONC 33.9 g/dl (32.0-36.5); MEAN CORPUSCULAR VOLUME 88.8 fl (80.0-96.0); MONO # 0.5 10^3/uL (0.0-0.8); MONO % 6.8 % (2.0-8.0); NEUTROPHILS # 4.5 10^3/uL (1.5-8.5); NEUTROPHILS % 62.2 % (36.0-66.0); PLATELET COUNT, AUTOMATED 326 10^3/uL (150-450); RED BLOOD COUNT 4.92 10^6/uL (4.30-6.10); WHITE BLOOD COUNT 7.2 10^3/uL (4.0-10.0)
[2023-05-09 17:22] LABS: ALKALINE PHOSPHATASE 59 U/L (46-116); ALT/SGPT 29 U/L (7.0-40); AST/SGOT 16 U/L (<34); BILIRUBIN,TOTAL 0.6 MG/DL (0.3-1.2); BLOOD UREA NITROGEN 14 MG/DL (9-23); CALCIUM LEVEL 9.1 MG/DL (8.5-10.1); CARBON DIOXIDE LEVEL 31 MMOL/L (20-31); CHLORIDE LEVEL 105 MMOL/L (98-107); CREATININE FOR GFR 0.93 MG/DL (0.70-1.30); GLOMERULAR FILTRATION RATE > 60.0 (>60); GLUCOSE, FASTING 95 MG/DL (60-100); POTASSIUM SERUM 5.1 MMOL/L (3.5-5.1); SODIUM LEVEL 142 MMOL/L (136-145); TOTAL PROTEIN 7.3 G/DL (5.7-8.2)
[2023-05-09 17:23] LABS: RHEUMATOID FACTOR QUANT < 3.5 IU/ML (<14)
[2023-05-09 17:40] LABS: ERYTHROCYTE SEDIMENTATION RATE 19 mm/hr (0-15)
== END ==
LOC: M LAB REF 16:28
PROVIDERS: ATTEND Nurse Practitioner Family
DX: M10.9 Gout, unspecified (principal)

== ENCOUNTER → 2023-06-04 | Outpatient (CLI) | payer OTHER | LOC: M RAD 13:09 | PROVIDERS: ATTEND Nurse Practitioner Family | DX: M10.9 Gout, unspecified (principal); M76.62 Achilles tendinitis, left leg ==

== ENCOUNTER 2023-06-05 01:51 | Emergency (ER) | payer OTHER ==
[~2023-06-05] VITALS: Ht 182.9 cm; Wt 140.9 kg
[2023-06-05 03:53] VITALS: TEMP 98.2
[2023-06-05 05:00] VITALS: BP 156/95; O2SAT 97
[2023-06-05] MEDS ORDERED: INDO50CA91 PO (06:33)
[2023-06-05] MEDS: INDOMETHACIN 25 MG CAP PO ONE (06:37)
== END 2023-06-05 06:51 | disposition home or self-care (01) ==
LOC: M ED 01:51
DX: S93.601A Unspecified sprain of right foot, initial encounter (principal); M10.072 Idiopathic gout, left ankle and foot; W10.8XXA Fall (on) (from) other stairs and steps, initial encounter; K21.9 Gastro-esophageal reflux disease without esophagitis; Y92.816 Subway car as the place of occurrence of the external cause; Y93.9 Activity, unspecified; Y99.9 Unspecified external cause status; Z79.891 Long term (current) use of opiate analgesic; Z79.1 Long term (current) use of non-steroidal anti-inflammatories (NSAID); Z79.899 Other long term (current) drug therapy; Z88.1 Allergy status to other antibiotic agents; Z91.010 Allergy to peanuts

== ENCOUNTER → 2023-11-21 | Outpatient (REF) | payer OTHER ==
[~2023-11-21] MED LIST changes: +ONDA-282 PO; -ONDA4TAB6 PO
[2023-11-22 13:57] LABS: ALBUMIN 4.1 G/DL (3.2-5.2); ALKALINE PHOSPHATASE 60 U/L (46-116); ALT/SGPT 43 U/L (7.0-40); AST/SGOT 23 U/L (<34); BILIRUBIN,TOTAL 0.6 MG/DL (0.3-1.2); BLOOD UREA NITROGEN 13 MG/DL (9-23); CALCIUM LEVEL 9.8 MG/DL (8.5-10.1); CARBON DIOXIDE LEVEL 30 MMOL/L (20-31); CHLORIDE LEVEL 107 MMOL/L (98-107); CHOLESTEROL LEVEL 160 MG/DL (<200); CHOLESTEROL RISK RATIO 5.35 (<5); CREATININE FOR GFR 0.95 MG/DL (0.70-1.30); GLOMERULAR FILTRATION RATE > 60.0 (>60); GLUCOSE, FASTING 80 MG/DL (60-100); HDL CHOLESTEROL 29.9 MG/DL (>40); LDL CHOLESTEROL 88.7 MG/DL (<100); MAGNESIUM LEVEL 1.8 MG/DL (1.8-2.4); NON-HDL-C 130.1 MG/DL; POTASSIUM SERUM 4.4 MMOL/L (3.5-5.1); SODIUM LEVEL 142 MMOL/L (136-145); TOTAL PROTEIN 7.7 G/DL (5.7-8.2); TRIGLYCERIDES LEVEL 207 MG/DL (<150)
[2023-11-22 13:58] LABS: BASO # 0.1 10^3/uL (0.0-0.2); BASO % 1.4 % (0.0-1.0); EOS # 0.3 10^3/uL (0.0-0.5); EOS % 3.9 % (0.0-3.0); HEMATOCRIT 45.9 % (42.0-52.0); HEMOGLOBIN 15.1 g/dl (13.5-17.5); LYMPH # 2.4 10^3/uL (1.5-5.0); LYMPH % 36.4 % (24.0-44.0); MEAN CORPUSCULAR HEMOGLOBIN 30.3 pg (27.0-33.0); MEAN CORPUSCULAR HGB CONC 32.9 g/dl (32.0-36.5); MEAN CORPUSCULAR VOLUME 92.2 fl (80.0-96.0); MONO # 0.5 10^3/uL (0.0-0.8); MONO % 7.2 % (2.0-8.0); NEUTROPHILS # 3.4 10^3/uL (1.5-8.5); NEUTROPHILS % 50.3 % (36.0-66.0); PLATELET COUNT, AUTOMATED 299 10^3/uL (150-450); RED BLOOD COUNT 4.98 10^6/uL (4.30-6.10); THYROID STIMULATING HORMONE 7.691 uIU/ML (0.55-4.78); WHITE BLOOD COUNT 6.7 10^3/uL (4.0-10.0)
[2023-11-22 14:21] LABS: HEMOGLOBIN A1c 5.1 % (4.0-6.0)
== END ==
LOC: M LAB REF 12:25
PROVIDERS: ATTEND Nurse Practitioner Family
DX: E66.01 Morbid (severe) obesity due to excess calories (principal)